=== PATIENT | female | born 2000 | race Caucasian/White ===

== ENCOUNTER 2021-12-09 16:40 | Outpatient (REF) | payer OTHER, SELFPAY ==
[2021-12-09 16:52] LABS: MANUAL DIFF FLAG NO
[2021-12-09 18:16] LABS: Basophils Percent Auto 0.6 % (0-2); Eosinophils Absolute Auto 0.3 X10*3/uL (0.0-0.4); Eosinophils Percent Auto 4.5 % (0-4); Hematocrit 38.9 % (37.0-47.0); Hemoglobin 13.2 g/dl (12.0-16.0); Imm Gran Abs Auto 0.01 X10*3/uL (0.00-0.03); Imm Gran Pct Auto 0.2 % (0.0-0.4); Lymphocytes Absolute Auto 2.7 X10*3/uL (1.2-4.9); Lymphocytes Percent Auto 41.7 % (20-40); Mean Corpuscular HGB Conc 33.9 g/dl (31.0-35.0); Mean Corpuscular Hemoglobin 30.3 pg (27.0-33.0); Mean Corpuscular Volume 89.4 fL (80.0-98.0); Mean Platelet Volume 10.5 fL (9.4-12.3); Monocytes Absolute Auto 0.4 X10*3/uL (0.1-1.2); Monocytes Percent Auto 5.9 % (2-11); Neutrophils Percent Auto 47.1 % (45-73); Platelet Count 322 X10*3/uL (160-400); Red Blood Count 4.35 X10*6/uL (4.20-5.50); Red Cell Distribution Width 11.9 % (11.0-16.0); White Blood Count 6.4 X10*3/uL (4.8-10.8)
[2021-12-09 18:30] LABS: Alanine Aminotransferase 12 U/L (0-31); Albumin Level 4.4 g/dL (3.5-5.0); Alkaline Phosphatase 50 U/L (39-117); Anion Gap 15 (12-20); Aspartate Amino Transferase 15 U/L (5-31); Bilirubin Total 0.4 mg/dL (0.0-1.0); Blood Urea Nitrogen 14 mg/dL (9-16); Calcium 9.6 mg/dL (8.4-10.2); Carbon Dioxide 26 mmol/L (22-29); Chloride 104 mmol/L (96-108); Estimated Glomerular Filt Rate > 60; Glucose Random 83 mg/dL (60-115); Potassium 4.7 mmol/L (3.3-5.1); Sodium 140 mmol/L (135-145); Total Protein 7.5 g/dL (6.5-8.0)
[2021-12-09 18:51] LABS: TSH reflex Free T4 1.34 uIU/mL (0.32-4.0); Vitamin D 25-OH Total 60.2 ng/mL (>30)
[2021-12-09 19:03] LABS: Folate 8.6 ng/mL (> or = 4.0); Vitamin B12 358 pg/mL (200-900)
== END 2021-12-09 16:41 | disposition home or self-care (01) ==
LOC: HO.LAB 16:40
PROVIDERS: PCP Nurse Practitioner Family; Visit Provider Nurse Practitioner Family
DX: Z00.00 Encounter for general adult medical examination without abnormal findings (principal)
CPT/HCPCS: 36415; 80053; 82306; 82607; 82746; 84443; 85025

== ENCOUNTER 2022-12-13 15:27 | Outpatient (AMB) | payer BC, SELFPAY ==
[2022-12-13 15:28] VITALS: BP 110/82; PULSE 74; O2SAT 100; BMI 30.2
--- NOTE | 2022-12-13 15:28 | MHC.PC.OV ---
Vital Signs 12/13/22 15:28 Height 5 ft 4 in Weight 176 lb BMI 30.2 BP 110/82 Blood Pressure Location Lt brachial Position Sitting Pulse 74 Pulse Source Pulse Oximeter Pulse Oximetry (%) 100 Oxygen Delivery Method Room Air Intake Visit Reasons: Annual Exam Intake Note: Patient is here today for a physical. Plate Cutter Required: No Allergies Seasonal Allergies Allergy (Mild, Verified 12/13/22 15:40) Itching cats Allergy (Mild, Uncoded 12/13/22 15:40) Itchy Eyes Medication List - Last Reconciled 12/13/22 by RENÉ Moreland norgestimate-ethinyl estradiol 0.25-35 mg-mcg (Estarylla) 1 tab PO DAILY Tobacco use date assessed: 12/13/22 Dental Screening Dental Screen Date: 12/13/22 Did you have a dental visit in the last 12 months?: Yes Did you have a dental problem in the last 6 months where you did not have access to dental care?: No Was dental information given to patient?: Patient has dentist HPI Annual Exam HPI Details Patient is a 22-year-old female who presents today for physical exam. Medical history significant for asthma and obesity. Patient reports normal Pap smear 2021 with [facility] gynecology. Tetanus vaccine within 10 years. Reports eye and dental exams up-to-date. Denies concerns at this visit. Due for blood work. [facility] Medical History (Updated 12/13/22 @ 15:53 by RENÉ Moreland) Overweight (BMI 25.0-29.9) Skin rash Surgical History [place] teeth extracted Family History Mother No problems noted. Father No problems noted. Social History Housing: Apartment Patient Tobacco Use Status: Never used Tobacco service: No Current occupational status: employed Cognitive needs: No Hearing needs: No Vision needs: Yes (contacts ) Questionnaire PHQ-9 Over the last 2 weeks, how often have you been bothered by any of the following problems? 1. Little interest or pleasure in doing things: not at all 2. Feeling down, depressed, or hopeless: not at all 3. Trouble falling or staying asleep, or sleeping too much: not at all 4. Feeling tired or having little energy: not at all 5. Poor appetite or overeating: not at all 6. Feeling bad about yourself - or that you are a failure or have let yourself or your family down: not at all 7. Trouble concentrating on things, such as reading the newspaper or watching television: not at all 8. Moving or speaking so slowly that other people could have noticed. Or the opposite - being so fidgety or restless that you have been moving around a lot more than usual: not at all 9. Thoughts that you would be better off or of hurting yourself in some way: not at all Total score: 0 Depression Screening Interpretation: Negative Depression Screening Done: Yes 57355 - PHQ-9 Billing: Yes Source: Developed by Drs. Mick Jones, Hina Minor, Refugio Cintron and colleagues, with an educational sunil from [employer]. Thrive Questionnaire Date Thrive assessed: 12/09/21 AUDIT C Alcohol Use Questionnaire (AUDIT-C) 1. How often do you have a drink containing alcohol?: 2-4 times a month 2. How many drinks containing alcohol do you have on a typical day when you are drinking?: 3 or 4 3. How often do you have six or more drinks on one occasion?: Never Total Score: 3 Score Reviewed/Action Taken: Yes ARIANNA-7 AMB Questionnaire ARIANNA-7 Date ARIANNA - 7 assessed: 12/13/22 Feeling nervous, anxious, or on edge: 0 = Not at all Not being able to stop or control worryin = Not at all Worrying too much about different things: 0 = Not at all Trouble relaxin = Not at all Being so restless that it is hard to sit still: 0 = Not at all Becoming easily annoyed or irritable: 0 = Not at all Feeling afraid as if something awful might happen: 0 = Not at all Total ARIANNA-7 score (0-4 normal; 5-9 mild; 10-14 moderate; 15-21 severe): 0 Source: Developed by Drs. Mick Jones, Hina Minor, Refugio Cintron and colleagues, with an educational sunil from [employer]. ARIANNA-7 Assessment Billing ARIANNA-7 Assessment Tool: ARIANNA-7 Assessment 47347 Review of Systems Const Denies body aches, Denies chills, Denies fever(s), Denies headache(s) and Denies weight loss Eyes Denies change in vision ENT Denies dizziness, Denies otalgia, Denies headache(s), Denies nasal discharge, Denies sinus pain and Denies sore throat Card Denies chest pain, Denies edema, Denies lightheadedness and Denies dyspnea Resp Denies cough, Denies dyspnea and Denies wheezing GI Denies abdominal pain, Denies constipation, Denies diarrhea, Denies nausea and Denies vomiting Denies dysuria Musc Denies myalgias Skin/Breast Denies rash Neuro Denies dizziness and Denies headache(s) Aller/Immun Denies wheezing Physical exam (Primary Care) Vital Signs: Last Vital Signs Pulse 74 12/13/22 15:28 BP 110/82 12/13/22 15:28 Pulse Ox 100 12/13/22 15:28 Oxygen Delivery Method Room Air 12/13/22 15:28 BMI result Body Mass Index 30.2 Tobacco/Smoking Status: Tobacco use Status Tobacco use date assessed 12/13/22 12/13/22 15:29 Patient Tobacco Use Status Never used Tobacco 12/13/22 15:29 PHQ-9: PHQ-9 Score PHQ-9: Total score 0 12/13/22 15:41 Depression Screening Interpretation: Negative Thrive Assessment: Date of Thrive Assessment Date Thrive assessed 12/09/21 12/13/22 15:29 Const General: cooperative and no acute distress Orientation/consciousness: patient oriented x3 HENMT Head: Yes normocephalic and Yes atraumatic Ears: TM's normal bilaterally General nose exam: Normal nasal mucous membranes and turbinates present and No nasal discharge present Face and sinus: Yes sinuses nontender Mouth: oropharynx normal and moist mucous membranes Throat: Yes posterior oropharynx normal Eyes General: appearance normal, both eyes and all related structures Pupils: Equal, round and reactive pupils present EOM: EOMs intact bilaterally Neck Neck: Yes normal visual inspection, Yes full ROM and Yes no lymphadenopathy Thyroid: Thyroid normal Resp Effort & Inspection: normal respiratory effort and able to speak in complete sentences Auscultation: clear to auscultation bilaterally, no crackles, no rales, no rhonchi and no wheezes Cardio Rate: regular rate Rhythm: regular rhythm Heart sounds: S1 normal heart sound present, S2 normal heart sound present and no murmurs GI Palpation (GI): Soft to palpation, not firm, nontender, no guarding, not rigid and no hepatosplenomegaly Auscultation: normal bowel sounds General: No CVA tenderness Back/Spine/Pelvis Back: No CVA tenderness Skin General skin exam: no rashes or lesions noted Neuro General: patient oriented x3 Cranial nerves: Yes Equal, round and reactive pupils present Gait exam (Neuro): Normal gait present Extrem General: Yes full ROM and No edema Office Procedures Flu Questionnaire Does the patient have a severe egg allergy?: No Does the patient have severe life threatening allergies?: No Does the patient have a fever or illness today?: No Has the patient ever had Guillain-Windsor Syndrome?: No Has the patient ever had any past reaction to a flu shot?: No Immunizations flu vacc [id number] 6mos up(PF) 60 mcg(15 mcgx4)/0.5 mL IM syringe Performing Provider: RENÉ Moreland Performing Location: [facility] Administered by: JOSEFA Najera on 12/13/22 15:44 Dose Route Admin Location Dispensed Lot Number Expiration Date [place] [employer] 0.5 mL IM Left Deltoid 0.5 mL [id number] 08/12/23 [id number] [employer] VIS Given Date VIS Provided VIS Publication Date 12/13/22 Single Vaccine 20 Eligibility Eligibility Date Funding Source Not [facility] Eligible 12/13/22 Private Assessment and Plan Assessment & Plan (1) Adult general medical exam: Comment: Tdap UTD. Covid IZs Pfizer x 2. Code(s): Z00.00 - Encounter for general adult medical examination without abnormal findings Plan: Repeat in 1 year or follow-up sooner as needed, blood work has been ordered (2) Asthma: Code(s): J45.909 - Unspecified asthma, uncomplicated Plan: Stable Provided with albuterol inhaler p.r.n. (3) Obesity (BMI 30.0-34.9): Code(s): E66.9 - Obesity, unspecified Plan: Healthy food choices and exercise as tolerated Orders: Orders TSH reflex Free T4 Today Z00.00 - Encounter for general adult medical examination without abnormal findings Complete Blood Count Auto Diff Today Z00.00 - Encounter for general adult medical examination without abnormal findings Influenza [id number] Immunization Today Z23 - Encounter for immunization Vitamin D 25-OH Total Today Z00.00 - Encounter for general adult medical examination without abnormal findings Comprehensive Met. Panel Today Z00.00 - Encounter for general adult medical examination without abnormal findings Medications: New albuterol sulfate 90 mcg/actuation (Ventolin HFA) 2 puffs inhalation Q4-6H PRN 8.5 grams 0RF shortness of breath or wheezing J45.909 - Unspecified asthma, uncomplicated Coding Level of Care Code Est Pt Prev Care 18-39y(15754) Diagnoses Adult general medical exam Z00.00 Asthma J45.909 Obesity (BMI 30.0-34.9) E66.9 Additional Codes ARIANNA-7 Assessment Billing - ARIANNA-7 Assessment Tool: ARIANNA-7 Assessment 15734 ([id number])
== END 2022-12-13 15:59 | disposition home or self-care (01) ==
PROVIDERS: Visit Provider Nurse Practitioner Family
DX: Z23 Encounter for immunization (principal); Z00.00 Encounter for general adult medical examination without abnormal findings; J45.909 Unspecified asthma, uncomplicated; E66.9 Obesity, unspecified; Z68.38 Body mass index [BMI] 38.0-38.9, adult
CPT/HCPCS: 90471; 90686; 99395

== ENCOUNTER 2023-12-18 13:28 | Outpatient (REF) | payer BC, SELFPAY ==
[2023-12-18 14:30] LABS: MANUAL DIFF FLAG NO
[2023-12-18 15:06] LABS: Basophils Absolute Auto 0.1 X10*3/uL (0.0-0.2); Eosinophils Absolute Auto 0.5 X10*3/uL (0.0-0.4); Eosinophils Percent Auto 6.9 % (0-4); Hematocrit 42.6 % (37.0-47.0); Hemoglobin 14.9 g/dl (12.0-16.0); Imm Gran Abs Auto 0.01 X10*3/uL (0.00-0.03); Imm Gran Pct Auto 0.1 % (0.0-0.4); Lymphocytes Percent Auto 41.2 % (20-40); Mean Corpuscular Hemoglobin 30.9 pg (27.0-33.0); Mean Corpuscular Volume 88.4 fL (80.0-98.0); Mean Platelet Volume 10.1 fL (9.4-12.3); Monocytes Absolute Auto 0.4 X10*3/uL (0.1-1.2); Monocytes Percent Auto 5.2 % (2-11); Neutrophils Absolute Auto 3.3 x10*3/uL (2.0-8.3); Neutrophils Percent Auto 45.6 % (45-73); Platelet Count 316 X10*3/uL (160-400); Red Blood Count 4.82 X10*6/uL (4.20-5.50); Red Cell Distribution Width 11.6 % (11.0-16.0); White Blood Count 7.3 X10*3/uL (4.8-10.8)
[2023-12-18 15:33] LABS: Alanine Aminotransferase 33 U/L (0-31); Albumin Level 4.6 g/dL (3.5-5.0); Alkaline Phosphatase 69 U/L (39-117); Anion Gap 13 (12-20); Aspartate Amino Transferase 25 U/L (5-31); Bilirubin Total 0.4 mg/dL (0.0-1.0); Blood Urea Nitrogen 18 mg/dL (9-16); Calcium 9.9 mg/dL (8.4-10.2); Carbon Dioxide 24 mmol/L (22-29); Chloride 105 mmol/L (96-108); Estimated Glomerular Filt Rate > 60; Glucose Random 88 mg/dL (60-115); Potassium 3.8 mmol/L (3.3-5.1); Sodium 138 mmol/L (135-145)
[2023-12-18 15:53] LABS: Free T4 (Free Thyroxine) 1.13 ng/dL (0.71-1.85); TSH reflex Free T4 1.35 uIU/mL (0.32-4.0)
[2023-12-18 15:55] LABS: Folate 13.9 ng/mL (> or = 4.0); Vitamin B12 1070 pg/mL (200-900)
[2023-12-22 16:52] LABS: Vitamin D 25-OH, D2 <4 ng/mL; Vitamin D 25-OH, D3 48 ng/mL; Vitamin D 25-OH, Total 48 ng/mL (30-100)
== END 2023-12-18 13:29 | disposition home or self-care (01) ==
LOC: HO.LAB 13:28
PROVIDERS: PCP Nurse Practitioner Family
DX: Z00.00 Encounter for general adult medical examination without abnormal findings (principal)
CPT/HCPCS: 36415; 80053; 82306; 82607; 82746; 84439; 84443; 85025; 96127

== ENCOUNTER 2023-12-18 13:28 | Outpatient (AMB) | payer BC, SELFPAY ==
[2023-12-18 13:31] VITALS: BP 118/82; PULSE 89; O2SAT 97; BMI 31.6
--- NOTE | 2023-12-18 13:31 | MHC.PC.OV ---
Vital Signs 12/18/23 13:31 Height 5 ft 4 in Weight 184 lb BMI 31.6 BP 118/82 Blood Pressure Location Lt brachial Position Sitting Pulse 89 Pulse Source Pulse Oximeter Pulse Oximetry (%) 97 Oxygen Delivery Method Room Air Intake Visit Reasons: annual exam/ALLEN Intake Note: Patient is here today for a physical. 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 Allergies Seasonal Allergies Allergy (Mild, Verified 12/18/23 13:46) Itching cats Allergy (Mild, Uncoded 12/18/23 13:46) Itchy Eyes Medication List - Last Reconciled 12/18/23 by Leela Brown PA-C albuterol sulfate 90 mcg/actuation (Ventolin HFA) 2 puffs inhalation Q4-6H PRN norgestimate-ethinyl estradiol 0.25-35 mg-mcg (Estarylla) 1 tab PO DAILY Tobacco use date assessed: 12/18/23 Dental Screening Dental Screen Date: 12/18/23 Did you have a dental visit in the last 12 months?: Yes Did you have a dental problem in the last 6 months where you did not have access to dental care?: No Was dental information given to patient?: Patient has dentist HPI annual exam/ALLEN HPI Details 23-year-old female with past medical history of obesity and asthma last seen by nurse practitioner 12/13/2022 coming in for annual exam. Patient states she has been having congestion with thick mucus and headache for the last month. She was having sinus pain and had televisit with other provider and was given amoxicillin. Initially her symptoms improved however they returned again two weeks ago and have been persistent. She denies any painful swallowing or fevers but endorses facial pressure, headache and thick chunky mucous. She has been [place] [facility] [place] Pap smears and [facility] for yearly [facility] exams. [facility] Medical History Overweight (BMI 25.0-29.9) Skin rash Surgical History Universal teeth extracted Family History Mother No problems noted. Father No problems noted. Social History Housing: Apartment Patient Tobacco Use Status: Never used Tobacco service: No Current occupational status: employed Cognitive needs: No Hearing needs: No Vision needs: Yes (contacts ) Questionnaire PHQ-9 Over the last 2 weeks, how often have you been bothered by any of the following problems? 1. Little interest or pleasure in doing things: not at all 2. Feeling down, depressed, or hopeless: not at all 3. Trouble falling or staying asleep, or sleeping too much: not at all 4. Feeling tired or having little energy: several days 5. Poor appetite or overeating: not at all 6. Feeling bad about yourself - or that you are a failure or have let yourself or your family down: not at all 7. Trouble concentrating on things, such as reading the newspaper or watching television: not at all 8. Moving or speaking so slowly that other people could have noticed. Or the opposite - being so fidgety or restless that you have been moving around a lot more than usual: not at all 9. Thoughts that you would be better off or of hurting yourself in some way: not at all Total score: 1 Depression Screening Interpretation: Negative Depression Screening Done: Yes 85093 - PHQ-9 Billing: Yes Source: Developed by Drs. Mick Jones, Hina Minor, Refugio Cintron and colleagues, with an educational sunil from [employer]. Thrive Questionnaire Date Thrive assessed: 12/16/23 I am a: Patient What is your living situation today?: I have a steady place to live Within the past 12 months, did the food you bought not last and you didn't have the money to get more?: Never true Within the past 12 months, did you worry whether your food would run out before you got money to buy more?: Never true Do you have trouble paying for medicines?: No Do you have trouble getting transportation to medical appointments?: No Do you have trouble paying your heating and electricity bill?: No Do you have trouble taking care of your child, family member or friend?: No Do you have trouble with day-to-day activities such as bathing, preparing meals, shopping, managing finances, etc.?: No Are you currently unemployed and looking for a job?: No Are you interested in more education?: No Please select the resources that you would like help with: None Currently or been in a relationship where the following occur: No concerns reported THRIVE Score: 0 AUDIT C Alcohol Use Questionnaire (AUDIT-C) 1. How often do you have a drink containing alcohol?: 2-4 times a month 2. How many drinks containing alcohol do you have on a typical day when you are drinking?: 1 or 2 3. How often do you have six or more drinks on one occasion?: Never Total Score: 2 ARIANNA-7 AMB Questionnaire ARIANNA-7 Date ARIANNA - 7 assessed: 12/18/23 Feeling nervous, anxious, or on edge: 0 = Not at all Not being able to stop or control worryin = Not at all Worrying too much about different things: 0 = Not at all Trouble relaxin = Not at all Being so restless that it is hard to sit still: 0 = Not at all Becoming easily annoyed or irritable: 0 = Not at all Feeling afraid as if something awful might happen: 0 = Not at all Total ARIANNA-7 score (0-4 normal; 5-9 mild; 10-14 moderate; 15-21 severe): 0 Source: Developed by Drs. Mick Jones, Hina Minor, Refugio Cintron and colleagues, with an educational sunil from [employer]. ARIANNA-7 Assessment Billing ARIANNA-7 Assessment Tool: ARIANNA-7 Assessment 29958 Review of Systems Const Denies body aches, Denies fatigue, Denies fever(s), Denies frequent falls, Reports headache(s) (occasional) and Denies weakness Eyes Details: sees eye doctor regularly Reports no additional complaints, Denies change in vision and Reports requires corrective lenses ENT Denies dysphagia, Denies dizziness, Reports facial pain, Reports headache(s) (occasional), Reports nasal congestion and Denies odynophagia Card Denies chest pain, Denies syncope, Denies irregular heart rhythm, Denies leg edema, Denies lightheadedness and Denies dyspnea Resp Denies cough and Denies dyspnea GI Denies abdominal pain, Denies constipation, Denies dysphagia, Denies dyspepsia, Denies diarrhea, Denies nausea, Denies odynophagia and Denies vomiting Denies urinary frequency, Denies dysuria, Denies urinary hesitancy and Denies urinary urgency Musc Denies back pain and Denies myalgias Skin/Breast Reports system reviewed and no additional complaints, except as documented Neuro Denies dizziness, Denies syncope, Denies frequent falls, Reports headache(s) (occasional) and Denies weakness Psych Reports no additional complaints Endo Denies fatigue Physical exam (Primary Care) Vital Signs: Last Vital Signs Pulse 89 12/18/23 13:31 BP 118/82 12/18/23 13:31 Pulse Ox 97 12/18/23 13:31 Oxygen Delivery Method Room Air 12/18/23 13:31 BMI result Body Mass Index 31.6 Tobacco/Smoking Status: Tobacco use Status Tobacco use date assessed 12/18/23 12/18/23 13:32 Patient Tobacco Use Status Never used Tobacco 12/18/23 13:32 PHQ-9: PHQ-9 Score PHQ-9: Total score 1 12/18/23 13:37 Depression Screening Interpretation: Negative Thrive Assessment: Date of Thrive Assessment Date Thrive assessed 12/16/23 12/18/23 13:32 Currently or been in a relationship where the following occur: No concerns reported Const General: cooperative, healthy appearing, comfortable and no acute distress Orientation/consciousness: patient oriented x3 HENMT Head: Yes normocephalic Ears: hearing grossly normal bilaterally, external ears normal, TM's normal bilaterally and EAC's normal General nose exam: Normal external nose present Face and sinus: Yes normal facial exam and Yes sinuses nontender Mouth: Normal oral and palatal mucosa present and tongue normal Throat: Yes posterior oropharynx normal Eyes General: appearance normal, both eyes and all related structures Conjunctivae: conjunctivae normal Pupils: Equal, round and reactive pupils present EOM: EOMs intact bilaterally and No Nystagmus present Neck Neck: Yes normal visual inspection, Yes full ROM and Yes no lymphadenopathy Chest Chest palpation & inspection: normal inspection of the chest Resp Effort & Inspection: normal respiratory effort Auscultation: clear to auscultation bilaterally, no crackles, no rales, no rhonchi, no wheezes and breath sounds present Cardio Rate: regular rate Rhythm: regular rhythm Peripheral pulses: radial pulses present and dorsalis pedis present GI Inspection: Yes normal to inspection and No Abdominal wall edema Palpation (GI): Soft to palpation, not firm and nontender Auscultation: normal bowel sounds Rectal Exam - Female: deferred General: Yes no CVA tenderness Back/Spine/Pelvis Back: no CVA tenderness Skin General skin exam: no rashes or lesions noted Neuro General: patient oriented x3 Cranial nerves: Yes Equal, round and reactive pupils present, Yes Midline tongue present, Yes Ability to bilaterally elevate shoulders present and No Nystagmus present Gait exam (Neuro): Normal gait present Extrem General: Yes normal to inspection, Yes full ROM, No no pedal edema and No edema Psych Speech and movement: Normal speech and movement present Affect: normal affect Insight: Good insight present (Psych) Judgement: Good judgement present (Psych) Coding Level of Care Code Est Pt Level 3 (87649) Est Pt Prev Care 18-39y(98124) Diagnoses Adult general medical exam Z00.00 Obesity (BMI 30.0-34.9) E66.9 Asthma J45.909 Sinusitis J32.9 Additional Codes ARIANNA-7 Assessment Billing - ARIANNA-7 Assessment Tool: ARIANNA-7 Assessment 43327 ([id number]) PHQ-9 - 63841 - PHQ-9 Billing: Yes ([id number]) Assessment & Plan Assessment & Plan (1) Adult general medical exam: Comment: Tdap UTD. Covid IZs Pfizer x 2. Code(s): Z00.00 - Encounter for general adult medical examination without abnormal findings Category: Medical Plan: Patient is up-to-date on all recommended routine screenings and vaccinations for her age. Ordered for updated blood work and we will have her follow up in 1 year or sooner if new problems arise. (2) Obesity (BMI 30.0-34.9): Code(s): E66.9 - Obesity, unspecified Category: Medical Plan: Healthy diet and regular exercise is encouraged. (3) Asthma: Code(s): J45.909 - Unspecified asthma, uncomplicated Category: Medical Plan: Asthma currently controlled on present medications. Continue on albuterol as needed. Avoid triggers such as allergies. (4) Sinusitis: Code(s): J32.9 - Chronic sinusitis, unspecified Category: Medical Plan: Patient has symptoms consistent with acute sinusitis we will trial azithromycin antibiotic advised patient to follow up if symptoms do not resolve. Plan This note was constructed using voice recognition software. While every effort has been made to ensure accuracy and support team assoc, still areas may have been included sometimes these areas may affect the content or meeting of the given symptoms. Total time spent caring for the patient today was 30 minutes. This includes time spent before the visit reviewing the chart, time spent during the visit, and time spent after the visit and documentation. Orders: Orders Free T4 (Free Thyroxine) Today Z00.00 - Encounter for general adult medical examination without abnormal findings TSH reflex Free T4 Today Z00.00 - Encounter for general adult medical examination without abnormal findings Vitamin D 25-OH (D2 and D3) Today Z00.00 - Encounter for general adult medical examination without abnormal findings Complete Blood Count Auto Diff Today Z00.00 - Encounter for general adult medical examination without abnormal findings Comprehensive Met. Panel Today Z00.00 - Encounter for general adult medical examination without abnormal findings Vitamin B12 and Folate Today Z00.00 - Encounter for general adult medical examination without abnormal findings Medications: New azithromycin 500 mg PO DAILY 3 tabs 0RF 3 days
== END 2023-12-18 14:05 | disposition home or self-care (01) ==
LOC: HO.HMCH 13:29
PROVIDERS: PCP Nurse Practitioner Family
DX: Z00.00 Encounter for general adult medical examination without abnormal findings (principal); J45.909 Unspecified asthma, uncomplicated; J32.9 Chronic sinusitis, unspecified; E66.9 Obesity, unspecified; Z68.31 Body mass index [BMI] 31.0-31.9, adult

== ENCOUNTER 2024-12-18 15:02 | Outpatient (AMB) | payer BC, SELFPAY ==
[2024-12-18 15:04] VITALS: BP 102/66; PULSE 66; RESP 18; O2SAT 97; BMI 28.5
--- NOTE | 2024-12-18 15:04 | A.OFFPC_ITS ---
Vital Signs 12/18/24 15:04 Height 5 ft 4 in Weight 166 lb BMI 28.5 BP 102/66 Blood Pressure Location Lt brachial Position Sitting Respiration 18 Pulse 66 Pulse Source Pulse Oximeter Temp Source Temporal Artery Scan Pulse Oximetry (%) 97 Oxygen Delivery Method Room Air Intake Visit Reasons: Annual Exam Vb Net Programmer Required: No Accompanied by: Self / Same As Patient Allergies Seasonal Allergies Allergy (Mild, Verified 12/18/24 15:21) Itching cats Allergy (Mild, Uncoded 12/18/24 15:21) Itchy Eyes Medication List - Last Reconciled 12/18/24 by Leela Brown PA-C albuterol sulfate 90 mcg/actuation (Ventolin HFA) 2 puffs inhalation Q4-6H PRN norgestimate-ethinyl estradiol 0.25-0.035 mg (Estarylla) 1 tab PO DAILY Tobacco use date assessed: 12/18/24 Dental Screening Dental Screen Date: 12/18/24 Did you have a dental visit in the last 12 months?: Yes Did you have a dental problem in the last 6 months where you did not have access to dental care?: No Was dental information given to patient?: Patient has dentist HPI Annual Exam HPI Details 24-year-old female with past medical his tory of asthma last seen 12/2023 coming in for annual exam. Presenting for an annual physical examination. The patient reports worsening seasonal allergies this fall, with symptoms including a stuffy nose, cough, and postnasal drip, making it difficult to differentiate from a common cold. She switched her allergy medication to Melissa in September. She has a history of eczema, which typically occurs in the winter in the creases of her arms and on one finger, managed with body oil and hydrocortisone. The patient has a history of asthma, which is well-controlled, and she only uses her albuterol inhaler when she has a cough from being sick. She has lost 18 pounds since last September through steady calorie management and is aiming for a target weight in the 150s. pap smear: following with [facility] confidential secretary eye exam: yearly [facility] vaccines: [facility] Medical History Overweight (BMI 25.0-29.9) Skin rash Surgical History [place] teeth extracted Family History Mother No problems noted. Father No problems noted. Social History Housing: Apartment Patient Tobacco Use Status: Never used Tobacco service: No Current occupational status: employed Cognitive needs: No Hearing needs: No Vision needs: Yes (contacts ) Questionnaire PHQ-9 Over the last 2 weeks, how often have you been bothered by any of the following problems? 1. Little interest or pleasure in doing things: not at all 2. Feeling down, depressed, or hopeless: not at all 3. Trouble falling or staying asleep, or sleeping too much: not at all 4. Feeling tired or having little energy: several days 5. Poor appetite or overeating: not at all 6. Feeling bad about yourself - or that you are a failure or have let yourself or your family down: not at all 7. Trouble concentrating on things, such as reading the newspaper or watching television: not at all 8. Moving or speaking so slowly that other people could have noticed. Or the opposite - being so fidgety or restless that you have been moving around a lot more than usual: not at all 9. Thoughts that you would be better off or of hurting yourself in some way: not at all Total score: 1 Depression Screening Interpretation: Negative Depression Screening Done: Yes Source: Developed by Drs. Mick Jones, Hina Minor, Refugio Cintron and colleagues, with an educational sunil from [employer]. Thrive Questionnaire Date Thrive assessed: 12/16/23 I am a: Patient What is your living situation today?: I have a steady place to live Within the past 12 months, did the food you bought not last and you didn't have the money to get more?: Never true Within the past 12 months, did you worry whether your food would run out before you got money to buy more?: Never true Do you have trouble paying for medicines?: No Do you have trouble getting transportation to medical appointments?: No Do you have trouble paying your heating and electricity bill?: No Do you have trouble taking care of your child, family member or friend?: No Do you have trouble with day-to-day activities such as bathing, preparing meals, shopping, managing finances, etc.?: No Are you currently unemployed and looking for a job?: No Are you interested in more education?: Yes Please select the resources that you would like help with: None Currently or been in a relationship where the following occur: No concerns reported THRIVE Score: 0 AUDIT C Alcohol Use Questionnaire (AUDIT-C) 1. How often do you have a drink containing alcohol?: Monthly or less 2. How many drinks containing alcohol do you have on a typical day when you are drinking?: 1 or 2 3. How often do you have six or more drinks on one occasion?: Never Total Score: 1 ARIANNA-7 AMB Questionnaire ARIANNA-7 Date ARIANNA - 7 assessed: 12/18/23 Feeling nervous, anxious, or on edge: 0 = Not at all Not being able to stop or control worryin = Not at all Worrying too much about different things: 0 = Not at all Trouble relaxin = Not at all Being so restless that it is hard to sit still: 0 = Not at all Becoming easily annoyed or irritable: 0 = Not at all Feeling afraid as if something awful might happen: 0 = Not at all Total ARIANNA-7 score (0-4 normal; 5-9 mild; 10-14 moderate; 15-21 severe): 0 Source: Developed by Drs. Mick Jones, Hina Minor, Refugio Cintron and colleagues, with an educational sunil from [employer]. Review of Systems Const Denies body aches, Denies chills, Denies fever(s), Denies headache(s) and Denies poor appetite Eyes Reports no additional complaints ENT Denies dysphagia, Denies dizziness, Denies headache(s) and Denies odynophagia Card Denies chest pain, Denies syncope, Denies edema, Denies irregular heart rhythm, Denies lightheadedness and Denies dyspnea Resp Denies cough and Denies dyspnea GI Denies abdominal pain, Denies constipation, Denies dysphagia, Denies diarrhea, Denies nausea, Denies odynophagia and Denies vomiting Reports no additional complaints Musc Reports no additional complaints and Denies abnormal gait Skin/Breast Reports system reviewed and no additional complaints, except as documented Neuro Denies abnormal gait, Denies dizziness, Denies syncope and Denies headache(s) Psych Reports no additional complaints Physical exam (Primary Care) Vital Signs: Last Vital Signs Pulse 66 12/18/24 15:04 Resp 18 12/18/24 15:04 BP 102/66 12/18/24 15:04 Pulse Ox 97 12/18/24 15:04 Oxygen Delivery Method Room Air 12/18/24 15:04 BMI result Body Mass Index 28.5 Tobacco/Smoking Status: Tobacco use Status Tobacco use date assessed 12/18/24 12/18/24 15:12 Patient Tobacco Use Status Never used Tobacco 12/18/24 15:12 PHQ-9: PHQ-9 Score PHQ-9: Total score 1 12/18/24 15:28 Depression Screening Interpretation: Negative Thrive Assessment: Date of Thrive Assessment Date Thrive assessed 12/16/23 12/18/24 15:12 Currently or been in a relationship where the following occur: No concerns reported Const General: cooperative, healthy appearing, comfortable and no acute distress Orientation/consciousness: patient oriented x3 HENMT Head: Yes normocephalic Ears: hearing grossly normal bilaterally, external ears normal, TM's normal bilaterally and EAC's normal General nose exam: Normal external nose present Face and sinus: Yes normal facial exam and Yes sinuses nontender Mouth: Normal oral and palatal mucosa present and tongue normal Throat: Yes posterior oropharynx normal Eyes General: appearance normal, both eyes and all related structures Conjunctivae: conjunctivae normal Pupils: Equal, round and reactive pupils present EOM: EOMs intact bilaterally and No Nystagmus present Neck Neck: Yes normal visual inspection, Yes full ROM and Yes no lymphadenopathy Chest Chest palpation & inspection: normal inspection of the chest Resp Effort & Inspection: normal respiratory effort Auscultation: clear to auscultation bilaterally, no crackles, no rales, no rhonchi, no wheezes and breath sounds present Cardio Rate: regular rate Rhythm: regular rhythm Peripheral pulses: radial pulses present and dorsalis pedis present GI Inspection: Yes normal to inspection and No Abdominal wall edema Palpation (GI): Soft to palpation, not firm and nontender Auscultation: normal bowel sounds Rectal Exam - Female: deferred General: Yes no CVA tenderness Back/Spine/Pelvis Back: no CVA tenderness Skin General skin exam: no rashes or lesions noted Neuro General: patient oriented x3 Cranial nerves: Yes Equal, round and reactive pupils present, Yes Midline tongue present, Yes Ability to bilaterally elevate shoulders present and No Nystagmus present Gait exam (Neuro): Normal gait present Extrem General: Yes normal to inspection, Yes full ROM, No no pedal edema and No edema Psych Speech and movement: Normal speech and movement present Affect: normal affect Insight: Good insight present (Psych) Judgement: Good judgement present (Psych) Coding Level of Care Code Est Pt Prev Care 18-39y(48534) Diagnoses Adult general medical exam Z00.00 Obesity (BMI 30.0-34.9) E66.9 Asthma J45.909 Seasonal allergies J30.2 Eczema L30.9 Assessment & Plan Assessment & Plan (1) Adult general medical exam: Comment: Tdap UTD. Covid IZs Pfizer x 2. Code(s): Z00.00 - Encounter for general adult medical examination without abnormal findings Category: Medical Plan: Patient is up-to-date on recommended routine screenings and vaccinations for age. Healthy diet and regular exercise is encouraged. I did ordered for updated blood work to be completed in the next few days. Plan to follow up yearly or sooner as needed pending blood work evaluation. (2) Obesity (BMI 30.0-34.9): Code(s): E66.9 - Obesity, unspecified Category: Medical Plan: Healthy diet and regular exercise is encouraged. Noted 18 lb weight loss since last visit. (3) Asthma: Code(s): J45.909 - Unspecified asthma, uncomplicated Category: Medical Plan: Asthma currently controlled on present medications. Continue on albuterol prn.? Avoid triggers such as allergies. (4) Seasonal allergies: Code(s): J30.2 - Other seasonal allergic rhinitis Category: Medical Plan: Recommend the use of OTC allergy medications and flonase. If does not improve with thes-lww-sejukab medications consideration for montelukast can be added to medication regimen. (5) Eczema: Code(s): L30.9 - Dermatitis, unspecified Category: Medical Plan: Prescription was sent for steroid cream to be used no longer than 14 days at a time. Plan This note was constructed using voice recognition software. While every effort has been made to ensure accuracy and artificial breeding ranch supervisor, still areas may have been included sometimes these areas may affect the content or meeting of the given symptoms. Total time spent caring for the patient today was 30 minutes. This includes time spent before the visit reviewing the chart, time spent during the visit, and time spent after the visit and documentation. Patient was informed and verbally consented to the use of an ambient scribe for clinic note documentation during this visit. Orders: Orders Complete Blood Count Auto Diff Today E66.9 - Obesity, unspecified, Z13.0 - Encounter for screening for diseases of the blood and blood-forming organs and certain disorders involving the immune mechanism Comprehensive Met. Panel Today E66.9 - Obesity, unspecified, Z00.00 - Encounter for general adult medical examination without abnormal findings Vitamin B12 and Folate Today Z13.21 - Encounter for screening for nutritional disorder Vitamin D 25-OH Total Today Z13.21 - Encounter for screening for nutritional disorder TSH reflex Free T4 Today Z13.29 - Encounter for screening for other suspected endocrine disorder Medications: New triamcinolone acetonide 0.5% 1 appl topical DAILY 15 grams 0RF fluticasone propionate 50 mcg/actuation (Flonase Allergy Relief) administer into each nostril 1 spray intranasal DAILY 16 grams 0RF
--- OUTSIDE RECORDS SUMMARY | 2024-12-18 18:07 | XMS_ITS | Encounter Summary ---
Author Organization [facility] Address [address] [place] [address] Phone Care Team Providers Care Civil Celebrant Name Role Phone Sarah Meade DO Primary Care Provider [phone] Encounter Details Date Type Department Care Team (Late st Contact Info) Description 10/20/2015 Documentation [facility] [place] [address] [place] [address] Family Medicine, Physician [address] [place] [address] Social History Tobacco Use Types Packs/Day Years Used Date Smoking Tobacco: Never Assessed Comments Unknown Sex and Gender Information Value Date Recorded Sex Assigned at Not on file Legal Sex Female 5:12 PM EDT Gender Identity Not on file Sexual Orientation Not on file documented as of this encounter Plan of Treatment Not on file documented as of this encounter Visit Diagnoses Not on filedocumented in this encounter Care Teams Civil Celebrant Relationship Specialty Start Date End Date Sarah Meade DO [address] [place] [address] PCP - General 09/22/16 05/25/22 documented as of this encounter
--- OUTSIDE RECORDS SUMMARY | 2024-12-18 18:07 | XMS_ITS | Encounter Summary ---
Author Organization [facility] Address [address] [place] [address] Phone Care Team Providers Care Outsole Tacker Name Role Phone Sarah Meade DO Primary Care Provider [phone] Reason for Visit * Reason Comments Med Refill Encounter Details Date Type Department Care Team (Late st Contact Info) Description 01/02/2018 Refill [facility] [address] [place] [address] Sarah Meade DO [address] [place] [address] Oral contraceptive pill surveillance (Primary Dx) Social History Tobacco Use Types Packs/Day Years Used Date Smoking Tobacco: Never Smokeless Tobacco: Never Comments:Never smoker Alcohol Use Standard Drinks/Week Comments No 0 (1 standard drink = 0.6 oz pur e alcohol) Comments No Sex and Gender Information Value Date Recorded Sex Assigned at Not on file Legal Sex Female 5:12 PM EDT Gender Identity Not on file Sexual Orientation Not on file documented as of this encounter Miscellaneous Notes * Telephone Encounter - Shiela Potter LPN - 01/02/2018 11:43 AM EST Refill request for OCP's. Last PE 01/22/17, has pending PE appt on 02/01/18/VIOLETA documented in this encounter Plan of Treatment Not on file documented as of this encounter Visit Diagnoses Diagnosis Oral contraceptive pill surveillance- Primary documented in this encounter Care Teams Outsole Tacker Relationship Specialty Start Date End Date Sarah Meade DO [address] [place] [address] PCP - General 09/22/16 05/25/22 documented as of this encounter
--- OUTSIDE RECORDS SUMMARY | 2024-12-18 18:07 | XMS_ITS | Encounter Summary ---
Author Organization [facility] Address [address] [place] [address] Phone Care Team Providers Care Black Top Roller Name Role Phone Sarah Meade DO Primary Care Provider [phone] Reason for Visit * Reason Comments Med Refill Encounter Details Date Type Department Care Team (Late st Contact Info) Description 03/27/2018 Refill [facility] [address] [place] [address] Sarah eMade DO [address] [place] [address] Oral contraceptive pill surveillance Social History Tobacco Use Types Packs/Day Years Used Date Smoking Tobacco: Never Smokeless Tobacco: Never Comments:Never smoker Alcohol Use Standard Drinks/Week Comments No 0 (1 standard drink = 0.6 oz pur e alcohol) Hunger/Food Answer Date Recorded No 03/02/2018 Stable Housing Answer Date Recorded 0 03/02/2018 Transportation Concerns Answer Date Rec orded No 03/02/2018 Hazards in Home Answer Date Recorded No 03/02/2018 Financing Utilities Answer Date Recorde d No 03/02/2018 Safety at Home Answer Date Recorded No 03/02/2018 Outside Support Answer Date Recorded No 03/02/2018 Understanding Health Concerns Answer Da te Recorded No 03/02/2018 Financing Health Concerns Answer Date R ecorded No 03/02/2018 Missing School or Work Answer Date Arsh rded No 03/02/2018 Comments No Sex and Gender Information Value Date Recorded Sex Assigned at Not on file Legal Sex Female 5:12 PM EDT Gender Identity Not on file Sexual Orientation Not on file documented as of this encounter Miscellaneous Notes * Telephone Encounter - Shiela Potter LPN - 03/27/2018 8:51 AM EST Refill request for OCP's, last PE 02/01/18/VIOLETA documented in this encounter Plan of Treatment Not on file documented as of this encounter Visit Diagnoses Diagnosis Oral contraceptive pill surveillance documented in this encounter Care Teams Black Top Roller Relationship Specialty Start Date End Date Sarah Meade DO [address] [place] [address] [place] [address] PCP - General 09/22/16 05/25/22 documented as of this encounter
--- OUTSIDE RECORDS SUMMARY | 2024-12-18 18:07 | XMS_ITS | Encounter Summary ---
Author Organization [facility] Address [address] [place] [address] Phone Care Team Providers Care Hose Cementer Name Role Phone Sarah Meade DO Primary Care Provider [phone] Encounter Details Date Type Department Care Team (Late st Contact Info) Description 12/03/2012 Documentation [facility] [place] [address] [place] [address] Family Medicine, Physician [address] [place], [place] [id number] Social History Tobacco Use Types Packs/Day Years [...] on filedocumented in this encounter Care Teams Hose Cementer Relationship Specialty Start Date End Date Sarah Meade DO [address] [place] [address] PCP - General 09/22/16 05/25/22 documented as of this encounter
--- OUTSIDE RECORDS SUMMARY | 2024-12-18 18:07 | XMS_ITS | Encounter Summary ---
Author Organization [facility] Address [address] [place] [address] Phone Care Team Providers Care Electronics Manufacturer Name Role Phone Sarah Meade DO Primary Care Provider [phone] Encounter Details Date Type Department Care Team (Late st Contact Info) Description 09/28/2016 Conversion Encounter [facility] [address] [place] [address] Social History Tobacco Use Types Packs/Day Years Used Date Smoking Tobacco: Never Comments:Never smoker Comments Unknown Sex and Gender Information Value Date Recorded Sex Assigned at Not on file Legal Sex Female 5:12 PM EDT Gender Identity Not on file Sexual Orientation Not on file documented as of this encounter Plan of Treatment Not on file documented as of this encounter Visit Diagnoses Not on filedocumented in this encounter Care Teams Electronics Manufacturer Relationship Specialty Start Date End Date Sarah Meade DO [address] [place] [address] PCP - General 09/22/16 05/25/22 documented as of this encounter
--- OUTSIDE RECORDS SUMMARY | 2024-12-18 18:07 | XMS_ITS | Encounter Summary ---
Author Organization [facility] Address [address] [place] [address] Phone Care Team Providers Care Launchman Name Role Phone Sarah Meade DO Primary Care Provider [phone] Encounter Details Date Type Department Care Team (Late st Contact Info) Description 11/14/2011 Documentation [facility] [place] [address] [place] [address] Family Medicine, Physician [address] [place], [place] [id number] Social History Tobacco Use Types Packs/Day Years [...] on filedocumented in this encounter Care Teams Launchman Relationship Specialty Start Date End Date Sarah Meade DO [address] [place] [address] PCP - General 09/22/16 05/25/22 documented as of this encounter
--- OUTSIDE RECORDS SUMMARY | 2024-12-18 18:07 | XMS_ITS | Encounter Summary ---
Author Organization [facility] Address [address] [place] [address] Phone Care Team Providers Care Health Information Management Director Name Role Phone Sarah Meade DO Primary Care Provider [phone] Encounter Details Date Type Department Care Team (Late st Contact Info) Description 11/09/2010 Documentation [facility] Family Medicine [address] [place] [address] Family Medicine, Physician [address] [place] [address] Social History Tobacco Use Types [...] on filedocumented in this encounter Care Teams Health Information Management Director Relationship Specialty Start Date End Date Sarah Meade DO [address] [place] [address] PCP - General 09/22/16 05/25/22 documented as of this encounter
--- OUTSIDE RECORDS SUMMARY | 2024-12-18 18:07 | XMS_ITS | Encounter Summary ---
Author Organization [facility] Address [address] [place] [address] Phone Care Team Providers Care Emergency Dispatcher Name Role Phone Sarah Meade DO Primary Care Provider [phone] Encounter Details Date Type Department Care Team (Late st Contact Info) Description 12/25/2014 [place] [facility] [place] [address] [place] [address] Family Medicine, Physician [address] [place] [address] Social History Tobacco Use Types [...] on filedocumented in this encounter Care Teams Emergency Dispatcher Relationship Specialty Start Date End Date Sarah Meade DO [address] [place] [address] PCP - General 09/22/16 05/25/22 documented as of this encounter
--- OUTSIDE RECORDS SUMMARY | 2024-12-18 18:07 | XMS_ITS | Encounter Summary ---
Author Organization [facility] Address [address] [place] [address] Phone Care Team Providers Care Quality Lab Technician Name Role Phone Sarah Meade DO Primary Care Provider [phone] Encounter Details Date Type Department Care Team (Late st Contact Info) Description 11/09/2010 [place]ation [facility] [place] [address] [place] [address] Family Medicine, Physician [address] [place] [address] Social History Tobacco Use Types [...] on filedocumented in this encounter Care Teams Quality Lab Technician Relationship Specialty Start Date End Date Sarah Meade DO [address] [place] [address] PCP - General 09/22/16 05/25/22 documented as of this encounter
--- OUTSIDE RECORDS SUMMARY | 2024-12-18 18:07 | XMS_ITS | Encounter Summary ---
Author Organization [facility] Address [address] [place] [address] Phone Care Team Providers Care Load Blocker Name Role Phone Sarah Meade DO Primary Care Provider [phone] Encounter Details Date Type Department Care Team (Late st Contact Info) Description 06/13/2013 [place] [facility] [place] [address] [place] [address] Family Medicine, Physician [address] [place] [address] Social History Tobacco Use Types [...] on filedocumented in this encounter Care Teams Load Blocker Relationship Specialty Start Date End Date Sarah Meade DO [address] [place] [address] PCP - General 09/22/16 05/25/22 documented as of this encounter
--- OUTSIDE RECORDS SUMMARY | 2024-12-18 18:07 | XMS_ITS | Encounter Summary ---
Author Organization [facility] Address [address] [place] [address] Phone Care Team Providers Care Vault Maker Name Role Phone Sarah Meade DO Primary Care Provider [phone] Encounter Details Date Type Department Care Team (Late st Contact Info) Description 11/14/2011 [place] [facility] [place] [address] [place] [address] Family Medicine, Physician [address] [place], [place] [id number] Social History Tobacco Use Types Packs/Day Years [...] on filedocumented in this encounter Care Teams Vault Maker Relationship Specialty Start Date End Date Sarah Meade DO [address] [place] [address] PCP - General 09/22/16 05/25/22 documented as of this encounter
--- OUTSIDE RECORDS SUMMARY | 2024-12-18 18:07 | XMS_ITS | Encounter Summary ---
Author Organization [facility] Address [address] [place] [address] Phone Care Team Providers Care Ballistics Teacher Name Role Phone Sarah Meade DO Primary Care Provider [phone] Encounter Details Date Type Department Care Team (Late st Contact Info) Description 12/03/2012 Documentation [facility] [place] [address] [place] [address] Family Medicine, Physician [address] [place], [place] [id number] Social History Tobacco Use Types Packs/Day Years [...] on filedocumented in this encounter Care Teams Ballistics Teacher Relationship Specialty Start Date End Date Sarah Meade DO [address] [place] [address] PCP - General 09/22/16 05/25/22 documented as of this encounter
--- OUTSIDE RECORDS SUMMARY | 2024-12-18 18:07 | XMS_ITS | Encounter Summary ---
Author Organization [facility] Address [address] [place] [address] Phone Care Team Providers Care Yard Engineer Name Role Phone Sarah Meade DO Primary Care Provider [phone] Encounter Details Date Type Department Care Team (Late st Contact Info) Description 12/15/2013 Documentation [facility] [place] [address] [place] [address] Family Medicine, Physician [address] [place] [address] Social History Tobacco Use Types [...] on filedocumented in this encounter Care Teams Yard Engineer Relationship Specialty Start Date End Date Sarah Meade DO [address] [place] [address] PCP - General 09/22/16 05/25/22 documented as of this encounter
--- OUTSIDE RECORDS SUMMARY | 2024-12-18 18:07 | XMS_ITS | Encounter Summary ---
Author Organization [facility] Address [address] [place] [address] Phone Care Team Providers Care Wire Brush Maker Name Role Phone Sarah Meade DO Primary Care Provider [phone] Encounter Details Date Type Department Care Team (Late st Contact Info) Description 07/25/2016 Documentation [facility] [place] Family Medicine [address] [place] [address] Family Medicine, Physician [address] [place], [place] [id number] Social History Tobacco Use Types Packs/Day Years [...] on filedocumented in this encounter Care Teams Wire Brush Maker Relationship Specialty Start Date End Date Sarah Meade DO [address] [place] [address] PCP - General 09/22/16 05/25/22 documented as of this encounter
--- OUTSIDE RECORDS SUMMARY | 2024-12-18 18:07 | XMS_ITS | Encounter Summary ---
Author Organization [facility] Address [address] [place] [address] Phone Care Team Providers Care Category Specialist Name Role Phone Sarah Meade DO Primary Care Provider [phone] Encounter Details Date Type Department Care Team (Late st Contact Info) Description 02/13/2013 Documentation [facility] [place] [address] [place] [address] Family Medicine, Physician [address] [place] [address] Social History Tobacco Use Types [...] on filedocumented in this encounter Care Teams Category Specialist Relationship Specialty Start Date End Date Sarah Meade DO [address] [place] [address] PCP - General 09/22/16 05/25/22 documented as of this encounter
--- OUTSIDE RECORDS SUMMARY | 2024-12-18 18:07 | XMS_ITS | Encounter Summary ---
Author Organization [facility] Address [address] [place] [address] Phone Care Team Providers Care Sheep Killer Name Role Phone Sarah Meade DO Primary Care Provider [phone] Encounter Details Date Type Department Care Team (Late st Contact Info) Description 11/20/2013 Documentation [facility] [place] [address] [place] [address] Family Medicine, Physician [address] [place] [address] Social History Tobacco Use Types [...] on filedocumented in this encounter Care Teams Sheep Killer Relationship Specialty Start Date End Date Sarah Meade DO [address] [place] [address] PCP - General 09/22/16 05/25/22 documented as of this encounter
--- OUTSIDE RECORDS SUMMARY | 2024-12-18 18:07 | XMS_ITS | Encounter Summary ---
Author Organization [facility] Address [address] [place] [address] Phone Care Team Providers Care Boiler Engineer Name Role Phone Sarah Meade DO Primary Care Provider [phone] Encounter Details Date Type Department Care Team (Late st Contact Info) Description 08/28/2011 Documentation [facility] [place] [address] [place] [address] Family Medicine, Physician [address] [place] [address] Social History Tobacco Use Types [...] on filedocumented in this encounter Care Teams Boiler Engineer Relationship Specialty Start Date End Date Sarah Meade DO [address] [place] [address] PCP - General 09/22/16 05/25/22 documented as of this encounter
--- OUTSIDE RECORDS SUMMARY | 2024-12-18 18:07 | XMS_ITS | Encounter Summary ---
Author Organization [facility] Address [address] [place] [address] Phone Care Team Providers Care Finance Associate Name Role Phone Sarah Meade DO Primary Care Provider [phone] Encounter Details Date Type Department Care Team (Late st Contact Info) Description 06/13/2013 Documentation [facility] [place] Family Medicine [address] [place] [address] Family Medicine, Physician [address] [place] [address] Social History Tobacco Use Types [...] on filedocumented in this encounter Care Teams Finance Associate Relationship Specialty Start Date End Date Sarah Meade DO [address] [place] [address] PCP - General 09/22/16 05/25/22 documented as of this encounter
--- OUTSIDE RECORDS SUMMARY | 2024-12-18 18:07 | XMS_ITS | Encounter Summary ---
Author Organization [facility] Address [address] [place] [address] Phone Care Team Providers Care Paper Bag Machine Operator Name Role Phone Sarah Meade DO Primary Care Provider [phone] Encounter Details Date Type Department Care Team (Late st Contact Info) Description 01/23/2013 [place] [facility] [place] [address] [place] [address] Family Medicine, Physician [address] [place] [address] Social History Tobacco Use Types [...] on filedocumented in this encounter Care Teams Paper Bag Machine Operator Relationship Specialty Start Date End Date Sarah Meade DO [address] [place] [address] PCP - General 09/22/16 05/25/22 documented as of this encounter
--- OUTSIDE RECORDS SUMMARY | 2024-12-18 18:07 | XMS_ITS | Encounter Summary ---
Author Organization [facility] Address [address] [place] [address] Phone Care Team Providers Care Pickle Solution Maker Name Role Phone Sarah Meade DO Primary Care Provider [phone] Encounter Details Date Type Department Care Team (Late st Contact Info) Description 01/04/2016 Documentation [facility] [place] Family Medicine [address] [place] [address] Family Medicine, Physician [address] [place], [place] [phone] Social History Tobacco Use Types Packs/Day Years [...] on filedocumented in this encounter Care Teams Pickle Solution Maker Relationship Specialty Start Date End Date Sarah Meade DO [address] [place] [address] PCP - General 09/22/16 05/25/22 documented as of this encounter
--- OUTSIDE RECORDS SUMMARY | 2024-12-18 18:07 | XMS_ITS | Encounter Summary ---
Author Organization [facility] Address [address] [place] [address] Phone Care Team Providers Care Oil Pipeline Operator Name Role Phone Sarah Meade DO Primary Care Provider [phone] Encounter Details Date Type Department Care Team (Late st Contact Info) Description 01/04/2016 Document[place] [facility] [place] [address] [place] [address] Family Medicine, Physician [address] [place], [place] [phone] Social History Tobacco Use Types Packs/Day Years [...] on filedocumented in this encounter Care Teams Oil Pipeline Operator Relationship Specialty Start Date End Date Sarah Meade DO [address] [place] [address] PCP - General 09/22/16 05/25/22 documented as of this encounter
--- OUTSIDE RECORDS SUMMARY | 2024-12-18 18:07 | XMS_ITS | Encounter Summary ---
Author Organization [facility] Address [address] [place] [address] Phone Care Team Providers Care Facilities Flight Check Pilot Name Role Phone Sarah Meade DO Primary Care Provider [phone] Encounter Details Date Type Department Care Team (Late st Contact Info) Description 12/15/2013 Documentation [facility] [place] [address] [place] [address] Family Medicine, Physician [address] [place] [address] Social History Tobacco Use Types [...] on filedocumented in this encounter Care Teams Facilities Flight Check Pilot Relationship Specialty Start Date End Date Sarah Meade DO [address] [place] [address] PCP - General 09/22/16 05/25/22 documented as of this encounter
--- OUTSIDE RECORDS SUMMARY | 2024-12-18 18:07 | XMS_ITS | Encounter Summary ---
Author Organization [facility] Address [address] [place] [address] Phone Care Team Providers Care Computer Typesetter Name Role Phone Sarah Meade DO Primary Care Provider [phone] Encounter Details Date Type Department Care Team (Late st Contact Info) Description 12/25/2014 Documentation [facility] [place] [address] [place] [address] Family Medicine, Physician [address] [place] [address] Social History Tobacco Use Types [...] on filedocumented in this encounter Care Teams Computer Typesetter Relationship Specialty Start Date End Date Sarah Meade DO [address] [place] [address] PCP - General 09/22/16 05/25/22 documented as of this encounter
--- OUTSIDE RECORDS SUMMARY | 2024-12-18 18:07 | XMS_ITS | Encounter Summary ---
Author Organization [facility] Address [address] [place] [address] Phone Care Team Providers Care Audio Production Instructor Name Role Phone Sarah Meade DO Primary Care Provider [phone] Encounter Details Date Type Department Care Team (Late st Contact Info) Description 06/15/2014 Documentation [facility] [place] Family [place] [address] [place] [address] Family Medicine, Physician [address] [place] [address] Social History Tobacco Use Types [...] on filedocumented in this encounter Care Teams Audio Production Instructor Relationship Specialty Start Date End Date Sarah Meade DO [address] [place] [address] PCP - General 09/22/16 05/25/22 documented as of this encounter
--- OUTSIDE RECORDS SUMMARY | 2024-12-18 18:07 | XMS_ITS | Patient Health Record ---
Author Organization [facility] Address [address] [place] [address] Care Team Providers Care Die Maintenance Technician Name Role Phone SARITA REYNOLDS Unavailable [phone] Reason For Referral No Information Medications Medication SIG (Take, Route, Fr equency, Duration) Notes Start Date End Date Status Control Unknown Active Social History Tobacco Use: Social History Observation Description Date Details (start date - stop date) Never Smoker NA - NA Tobacco Use/Smoking Question Answer Notes Are you a nonsmoker Alcohol Screen (Audit-C) Question Answer Notes Did you have a drink containing alcohol in the p ast year? No Points 0 Interpretation Negative Plan Of Treatment No Information Insurance Providers Payer Name Payer Address Payer Phone Subscriber Number Group Number Insured Name Patient Relationship to Insured Coverage Start Date Coverage End Date [employer] [place] [address] [place] [address] [phone] [id number] NITIN TIWARI Child - Insured has Financial Responsibility Medical (General) History Medical History History ICD Code Asthma 493 Surgical History Surgery Date(Month/Year)
--- OUTSIDE RECORDS SUMMARY | 2024-12-18 18:07 | XMS_ITS | Encounter Summary ---
Author Organization [facility] Address [address] [place] [address] Phone Care Team Providers Care E Commerce Marketing Manager Name Role Phone Sarah Meade DO Primary Care Provider [phone] Encounter Details Date Type Department Care Team (Late st Contact Info) Description 12/03/2012 Documentation [facility] [place] [address] [place] [address] Family Medicine, Physician [address] [place], [place] [phone] Social History Tobacco Use Types Packs/Day Years [...] on filedocumented in this encounter Care Teams E Commerce Marketing Manager Relationship Specialty Start Date End Date Sarah Meade DO [address] [place] [address] PCP - General 09/22/16 05/25/22 documented as of this encounter
--- OUTSIDE RECORDS SUMMARY | 2024-12-18 18:07 | XMS_ITS | Encounter Summary ---
Author Organization [facility] Address [address] [place] [address] Phone Care Team Providers Care Pbx Manager Name Role Phone Sarah Meade DO Primary Care Provider [phone] Reason for Visit * Reason Comments Med Refill Encounter Details Date Type Department Care Team (Late st Contact Info) Description 01/27/2020 Refill [facility] [address] [place], [place] [id number] Sarah Meade DO [address] [place], [place] [id number] Oral contraceptive pill surveillance Social History Tobacco Use Types Packs/Day Years Used Date Smoking Tobacco: Never Smokeless Tobacco: Never Comments:Never smoker Alcohol Use Standard Drinks/Week Comments No 0 (1 standard drink = 0.6 oz pur e alcohol) Hunger/Food Answer Date Recorded In the last 12 months, did y ou or your family ever eat less than you felt you should because there wasn't enough money for food? No 02/17/2019 Stable Housing Answer Date Recorded Are you worried that in the next 2 months you may not have stable housing? No 02/17/2019 Transportation Concerns Answer Date Rec orded In the last 12 months, have you or your family ever had to go without healthcare because you didn't have a way to get there? No 02/17/2019 Hazards in Home Answer Date Recorded Think about the place you li ve. Do you have problems with any of the following? Pests (mice or roaches), mold, no/not working smoke detectors, water leaks, no window guards. No 2019 Financing Utilities Answer Date Recorde d In the last 12 months, has t he electric, gas, oil, or water company threatened to shut off your services in your home? No 02/17/2019 Safety at Home Answer Date Recorded Are you or your family worried about feeling saf e in your home? No 02/17/2019 Outside Support Answer Date Recorded Do you feel that you need mo re support from other people or programs to help you care for yourself or your family? No 02/17/2019 Understanding Health Concerns Answer Da te Recorded Do you need help understandi ng your or your child's healthcare needs (diagnosis, medications, plan, etc.)? No 02/17/2019 Financing Health Concerns Answer Date R ecorded In the last 12 months, was t here a time when your child needed to see a doctor or get medications or supplies but could not because of cost? No 02/17/2019 Missing School or Work Answer Date Arsh rded Did you or your child miss s chool or work because of a health problem that could have been avoided? No 02/17/2019 Comments No Sex and Gender Information Value Date Recorded Sex Assigned at Not on file Legal Sex Female 5:12 PM EDT Gender Identity Not on file Sexual Orientation Not on file documented as of this encounter Miscellaneous Notes * Telephone Encounter - Randa Fernandes LPN - 01/27/2020 12:25 PM EST Needs refill on ocp's Last pe 02/2019. pe pending 02/2020 documented in this encounter Plan of Treatment Not on file documented as of this encounter Visit Diagnoses Diagnosis Oral contraceptive pill surveillance documented in this encounter Care Teams Pbx Manager Relationship Specialty Start Date End Date Sarah Meade DO [address] [place] [address] [place] [address] PCP - General 09/22/16 05/25/22 documented as of this encounter
--- OUTSIDE RECORDS SUMMARY | 2024-12-18 18:07 | XMS_ITS | Clinical Summary ---
Author Organization [facility] Address [address] [place] [address] Phone Care Team Providers Care Breaking Machine Operator Name Role Phone Unavailable Primary Care Provider Unavailabl e Allergies No known active allergies Medications triamcinolone 0.1 % creamIndications: Intrinsic eczema Apply topically 2 (two) times a day. 30 g 1 8 Active Additional Information Patient not taking.Reported on 08/26/2018 albuterol HFA (ProAir HFA) 108 (90 Base) MCG/ACT inhalerIndication s:Mild intermittent asthma without complication Inhale 2 puffs every 4 (four) hours as needed for wheezing. q 3-4 hours prn asthma sxs 1 Units 0 Active Additional Information Patient not taking.Reported on 02/23/2020 norgestimate-ethi nyl estradiol 0.25-35 MG-MCG per tabletIndications :Oral contraceptive pill surveillance TAKE 1 TABLET BY MOUTH EVERY DAY 84 tablet 2 Active Active Problems Problem Noted Date Diagnosed Date Allergic rhinitis 11/02/2009 Mild intermittent asthma 10/16/2008 Overview (02/01/2018): proair prn Assessment & Plan (02/23/2020 2:39 PM EST): Has not used proair in a long time Assessment & Plan (02/17/2019 2:05 PM EST): Uses proair on occasion Assessment & Plan (01/23/2017 8:40 AM EST): proair as needed- will check if needs RF Immunizations Immunization Administration Dates Next Due DTaP 5 09/22/2003, 2,02/28/2000,01/09,1999 HPV, Quadrivalent 06/12/2013,02/11/2013,12/03/19 13 Hep A, ped/adol 06/12/2014,11/19/2013 Hep B, ped/adol 05/29/2000,02/28/2000,1999 Hib (PRP-T) 11/26/2000, 1,01/10/2000,10/30 IPV 09/22/2003, 2,01/10/2000,10/30 Influenza Split 11/13/2011,11/08/2010,11/02/2009 Influenza, injectable, MDCK, preservative free, quadrivalent 12/11/2018,12/13/2017 Influenza, injectable, quadr ivalent, preservative free 10/18/2016,12/31/2015,12/24/2014,11/19,12/02/2012 Influenza, injectable, trivalent 009,01/16/2008,12/21/2006,11/14,12/05/2004,11/26/2003 MMR 09/22/2003,08/27/2000 Meningococcal B Trumenba 08/05/2018,02/01/2018 Meningococcal Conj (Menactra) MCV4P 01/22/2017,0 11/08/2010 Pneumococcal Conjugate 11/26/2000,2000,01/10/2000,10/30 Tdap 11/08/2010 Varicella 09/17/2007,08/27/2000 Family History Medical History Relation Name Comments Asthma Father wolf Hyperlipidemia Father wolf Seizures Father wolf Cancer Maternal Grandfather Hypertension Maternal Grandfather No Known Problems Maternal Grandmother Allergic rhinitis Mother anali Hyperlipidemia Mother anali Lupus Paternal Grandfather Stroke Paternal Grandfather No Known Problems Paternal Grandmother Asthma Sister Relation Name Status Comments Father wolf Alive Father: Asthma, Seizure disorder, High cholesterol, Allergies Maternal Grandfather Materna l grandfather: Hypertension, Cancer, neck Maternal Grandmother Alive Mother anali Alive Mother: High ch olesterol, Allergies Paternal Grandfather Alive Paterna l grandfather: Systemic lupus erythematosus Paternal Grandmother Alive Sister Alive Sister: Asthma, Alive and well Social History Tobacco Use Types Packs/Day Years [...] on file Sexual Orientation Not on file Last Filed Vital Signs Vital Sign Reading Time Taken Comments Blood Pressure 117/53 02/23/2020 1:58 PM EST Pulse 60 02/23/2020 1:58 PM EST Temperature 36.1 C (96.9 F) 02/23/2020 1:58 PM EST Respiratory Rate - - Oxygen Saturation 97% 11/21/2011 12:00 AM EDT Inhaled Oxygen Concentration - - Weight 68 kg (150 lb) 02/23/2020 1:58 PM EST Height 164.5 cm (5' 4.75 ) 02/23/2020 1:58 PM ES T Body Mass Index 25.15 02/23/2020 1:58 PM EST Plan of Treatment Health Maintenance Due Date Last Done Comments DTaP,Tdap,and Td Vaccines (7 - Td or Tdap) 11/08/2020 11/08/2010, 09/22/2003, 03/05/2001, Additional history exists COVID-19 Vaccine (2024-2 6 season) 2024 02/24/2021, 06/20/2020, 05/30/2020 Hepatitis B Vaccines Completed 05/29/2000, 02/28/2000, 1999 HIB Vaccines Completed 11/26/2000, 02/12, 01/10/2000, Additional history exists Pneumococcal Vaccine Discontinued 11/26/2000, 02/28/2000, 01/10/2000, Additional history exists IPV Vaccines Completed 09/22/2003, 02/13, 01/10/2000, Additional history exists MMR Vaccines Completed 09/22/2003, 08/27/2000 Varicella Vaccines Completed 09/17/2007, 08/27/2000 HPV Vaccines Completed 06/12/2013, 01/14, 12/02/2012 Hepatitis A Vaccines Completed 06/12/2014, 11/20/19 14 Meningococcal Vaccine Completed 01/22/2017, 011 Men B Vaccine Completed 08/05/2018, 02/01/2018 Influenza Vaccines Discontinued 12/09/2021, 1 02/15/2020, 01/13/2020, Additional history exists Procedures * Due to [place] state law, this organization might not be sharing sensitive test results. Procedure Name Priority Date/Time Associated Diagnosis Comments CHLAMYDIA AND GONORRHEA, AMPLIFIED Routine 02/17/2019 1:35 PM EST Screening examination for bacterial and spirochetal disease from Last 3 Months or Most Recently Relevant to Health Maintenance Results * Due to [place] state law, this organization might not be sharing sensitive test results. * Chlamydia and Gonorrhoea, Amplified (02/17/2019 1:35 PM EST) Chlamydia Trachomatis, DNA Probe NEGATIVE (NEG) [facility] Comment: No Chlamydia Trachomatis RNA detected in this patient's sample (REFERENCE RANGE/NORMAL VALUE: NOT DETECTED) Note: This test uses engineering technician parking- mediated amplification method to detect rRNA from C. Trachomatis URINE GC AMP PROBE NEGATIVE (NEG) [facility] Comment: No Neisseria Gonorrhoeae RNA detected in this patient's sample (REFERENCE RANGE/NORMAL VALUE: NOT DETECTED) NOTE: This test uses engineering technician parking-mediated amplification method to detect rRNA from N.Gonorrhoeae. A negative result does not preclude infection. In the case of a negative urine result, testing of an endocervical(female) or urethral (male) specimen is recommended if there is high clinical suspicion of infection. Due to very high sensitivity of Nucleic Acid Amplification Test, false positive results may occur. Therefore, specimen handling is extremely important. In patients in whom the disease is unlikely, additional sample for testing should be considered after an initial positive result. The performance characteristics of this test have not been evaluated in children. The Aptima Combo2 assay is not intended for the evaluation of suspected sexual abuse or for other medico-legal indications. The ordering provider should assess if the patient had consensual sex without risk of sexual abuse. Consult the [facility] if needed. Contact phone number . Therapeutic failure or success cannot be determined with the Aptima Combo2 assay since nucleic acid may persist following appropriate antimicrobial therapy. The Centers for Disease Control and Prevention (CDC) recommends confirmatory retesting using culture or a different nucleic acid amplification test when positive results occur, if indicated. Testing performed or reported by [facility], a Service of [facility], [address] [place] [address] Jaspreet Us MD, Director Shopper Marketing Urine 02/17/2019 1:35 PM EST 02/17/2019 11:34 PM EST us Sarah Meade DO LAB MICROBIOLOGY - GENERAL ORDER LISETH Final Result [facility] from Last 3 Months or Most Recently Relevant to Health Maintenance
--- OUTSIDE RECORDS SUMMARY | 2024-12-18 18:07 | XMS_ITS | Encounter Summary ---
Author Organization [facility] Address [address] [place] [address] Phone Care Team Providers Care Assistant Professor Of Economics Name Role Phone Sarah Meade DO Primary Care Provider [phone] Encounter Details Date Type Department Care Team (Late st Contact Info) Description 02/25/2015 Documentation [facility] [place] [facility] [address] [place] [address] Family Medicine, Physician [address] [place], [place] [id number] Social History Tobacco Use Types Packs/Day Years [...] on filedocumented in this encounter Care Teams Assistant Professor Of Economics Relationship Specialty Start Date End Date Sarah Meade DO [address] [place] [address] PCP - General 09/22/16 05/25/22 documented as of this encounter
--- OUTSIDE RECORDS SUMMARY | 2024-12-18 18:07 | XMS_ITS | Encounter Summary ---
Author Organization [facility] Address [address] [place] [address] Phone Care Team Providers Care Obstetrics Gynecology Physician Name Role Phone Sarah Meade DO Primary Care Provider [phone] Reason for Visit * Reason Comments Med Refill Encounter Details Date Type Department Care Team (Late st Contact Info) Description 12/04/2018 Refill [facility] [place] [address] [place], [place] [phone] Sarah Meade DO [address] [place] [address] Oral contraceptive pill surveillance Social History Tobacco [...] Telephone Encounter - Shiela Potter LPN - 12/04/2018 7:15 AM EDT Refill request for OCP's. Last PE 02/01/2018, has pending PE 02/17/19/VIOLETA documented in this encounter Plan of Treatment Not on file documented as of this encounter Visit Diagnoses Diagnosis Oral contraceptive pill surveillance documented in this encounter Care Teams Obstetrics Gynecology Physician Relationship Specialty Start Date End Date Sarah Meade DO [address] [facility] [place] [address] PCP - General 09/22/16 05/25/22 documented as of this encounter
--- OUTSIDE RECORDS SUMMARY | 2024-12-18 18:07 | XMS_ITS | Encounter Summary ---
Author Organization [facility] Address [address] [place] [address] Phone Care Team Providers Care Optical Effects Line Up Person Name Role Phone Sarah Meade DO Primary Care Provider [phone] Encounter Details Date Type Department Care Team (Late st Contact Info) Description 01/06/2014 Documentation [facility] [place] Family Medicine [address] [place] [address] Family Medicine, Physician [address] [place], [place] [phone] Social History Tobacco Use Types Packs/Day Years [...] on filedocumented in this encounter Care Teams Optical Effects Line Up Person Relationship Specialty Start Date End Date Sarah Meade DO [address] [place] [address] PCP - General 09/22/16 05/25/22 documented as of this encounter
--- OUTSIDE RECORDS SUMMARY | 2024-12-18 18:07 | XMS_ITS | Encounter Summary ---
Author Organization [facility] Address [address] [place] [address] Phone Care Team Providers Care Automated Weaver Name Role Phone Sarah Meade DO Primary Care Provider [phone] Encounter Details Date Type Department Care Team (Late st Contact Info) Description 05/28/2015 Documentation [facility] [place] Family Medicine [address] [place] [address] Family Medicine, Physician [address] [place] [address] Social History Tobacco Use Types [...] on filedocumented in this encounter Care Teams Automated Weaver Relationship Specialty Start Date End Date Sarah Meade DO [address] [place] [address] PCP - General 09/22/16 05/25/22 documented as of this encounter
--- OUTSIDE RECORDS SUMMARY | 2024-12-18 18:07 | XMS_ITS | Encounter Summary ---
Author Organization [facility] Address [address] [place] [address] Phone Care Team Providers Care [employer] Name Role Phone Sarah Meade DO Primary Care Provider [phone] Reason for Visit * Reason Comments Med Refill Encounter Details Date Type Department Care Team (Late st Contact Info) Description 02/26/2019 Refill [facility] [place] [address] [place], [place] [phone] Sarah Meade DO [address] [place], [place] [phone] Oral contraceptive pill surveillance Social History Tobacco [...] surveillance documented in this encounter Care Teams [employer] Relationship Specialty Start Date End Date Sarah Meade DO [address] [facility] [place] [address] PCP - General 09/22/16 05/25/22 documented as of this encounter
== END 2024-12-18 15:42 | disposition home or self-care (01) ==
LOC: HO.HMCH 15:03
DX: Z00.00 Encounter for general adult medical examination without abnormal findings (principal); E66.9 Obesity, unspecified; Z68.28 Body mass index [BMI] 28.0-28.9, adult; J45.909 Unspecified asthma, uncomplicated; J30.2 Other seasonal allergic rhinitis; L30.9 Dermatitis, unspecified